=== PATIENT | male | born 2005 | race Caucasian/White ===

== ENCOUNTER 2025-01-09 09:36 | Emergency (ER) | payer OTHER, SELFPAY ==
[2025-01-09 09:37] VITALS: BP 132/91; PULSE 78; RESP 16; TEMP 37; O2SAT 100; BMI 22.4
[2025-01-09 09:43] VITALS: BP 132/91; PULSE 78; O2SAT 100
--- NOTE | 2025-01-09 09:56 | PC.NURSE ---
DR GARCIA AT BEDSIDE
--- NOTE | 2025-01-09 09:57 | ED_ITS ---
Discharge Plan Disposition Patient Disposition: Home, Self-Care Referrals Follow up/Referrals: Provider,Referral, [Primary Care Provider, Medical] - See instructions Activity Restrictions/Add. Instructions Additional Instructions/Restrictions: You were given a dose of steroids here for your poison jason. I encourage you to continue to use calamine lotion to help with your symptoms. You can take Benadryl as well to help with itchiness. If symptoms do not improve, follow-up with your primary care doctor. Will encourage you to wash all your close and sheets in hot water with soap. If you develop any new or worsening symptoms, such as shortness of breath, vomiting, diarrhea, worsening rash, or if you become concerned for your health for any reason, return to the emergency department for evaluation Clinical Impressions Clinical Impression: Contact dermatitis Instructions Patient Instructions: DI for Skin Abscess Print Language Print Language: Welsh Discharge ED Provider: To [facility] Adult HPI General Chief complaint: Skin/Abscess/Foreign Body Stated complaint: poison jason/oak on body, diff breathing Time Seen by Provider: 01/09/25 09:52 Mode of Arrival: Ambulatory Source of Information: Patient Description of Symptoms (Recalled from ER Triage Doc. by RN): Patient presents with poison jason x 1 week on legs, arms and back. Used OTC calamine lotion with no relief. History of Present Illness HPI narrative: Karlo Mcintosh is a 19y male with no significant past medical history who presents to the emergency department for complaints of a rash that he believes may be poison jason. Patient states that a week ago, he was hunting deer and may have gotten into poison jason or poison oak. He states that since then, he has had a rash on both of his hands spread to his face. He states overall the rash is improving and is mildly itchy at this point. He states that they are starting to improve. His mom convinced him to come to the emergency room. He does state that he felt somewhat short of breath last night but overall feels improvement today. He denies any chest pain, vomiting or abdominal pain. He is otherwise healthy. Related Data Allergies Allergy/AdvReac Type Severity Reaction Status Date / Time No Known Allergies Allergy Verified 01/09/25 10:00 [facility] Disclaimer: The information contained in this section may have been updated after the patient was seen, as this information can be updated by other users. Social History Smoking Status: Never smoker alcohol intake: never current occupational status: employed Travel in the last 8 weeks?: None ROS Obtained: Yes Systems reviewed as appropriate & no additional complaints except as documented Physical Exam General General appearance: alert and in no apparent distress Head Head exam: atraumatic Eye Eye exam: Present normal appearance ENT ENT exam: Present normal external ear exam Neck Neck exam: Present full ROM Chest Chest inspection: Present symmetric chest wall rise Respiratory Respiratory exam: Present normal lung sounds bilaterally; Absent respiratory distress, wheezes or stridor Cardiovascular Cardiovascular exam: Present regular rate and normal rhythm Abdominal Exam Abdominal exam: Present soft; Absent tenderness or guarding exam: Present deferred Extremities Exam Extremities exam: Present normal inspection Back Exam Back exam: Present normal inspection Neurological Exam Neurological exam: Present alert and oriented X3 Psychiatric Psychiatric exam: Present normal affect Skin Skin exam: Present warm, dry and rash (Linear papules with mild erythema to the bilateral upper extremities mostly on the dorsal hands and forearms extending to the proximal arms. A few spots on the face as well. excoriation soriano noted) Medical Decision Making Medical Records Screening: Per USPSTF and CDC recommendations, given the prevalence of disease in our region, it is our hospital?s policy to screen for HIV and viral Hepatitis for all patients aged 18 and over and those with ongoing risk factors. Royal Inquiry Pt receiving controlled substance: No Vital Signs: 01/09/25 09:37 01/09/25 09:43 01/09/25 10:08 Temperature 98.6 F 98.2 F Temperature Source Oral Pulse Rate 78 80 Pulse Rate [Right Radial] 78 Respiratory Rate 16 20 Blood Pressure 132/91 H 110/78 Blood Pressure [Right Arm] 132/91 H Blood Pressure Mean [Right Arm] 104 Blood Pressure Source [Right Arm] Automatic Cuff Blood Pressure Position [Right Arm] Sitting 02 Sat by Pulse Oximetry 100 100 Oxygen Delivery Method Room Air Room Air Orders (Tests/Meds): ED MEDICATIONS Discontinued Medications Generic Name Dose Route Start Last Admin Trade Name Freq PRN Reason Stop Dose Admin Dexamethasone 10 mg 01/09/25 10:01 01/09/25 10:04 Dexamethasone 4mg Tablet PO 01/09/25 10:02 10 mg ONCE ONE Administration Medical Decision Narrative: Karlo Mcintosh is a 19y male with no significant past medical history who presents to the emergency department for complaints of a rash that he believes may be poison jason. Patient states that a week ago, he was hunting deer and may have gotten into poison jason or poison oak. He states that since then, he has had a rash on both of his hands spread to his face. He states overall the rash is improving and is mildly itchy at this point. He states that they are starting to improve. His mom convinced him to come to the emergency room. He does state that he felt somewhat short of breath last night but overall feels improvement today. He denies any chest pain, vomiting or abdominal pain. He is otherwise healthy. On arrival, patient is hemodynamically stable, afebrile, breathing carefully on room air with oxygen saturation 100%. Physical exam, stated above, reveals an overall well appearing male in no distress. He has linear papules along his bilateral upper extremities and into his face consistent with contact dermatitis, likely poison jason or poison oak. Differential diagnosis includes, poison jason, poison oak, contact dermatitis, low concern for pulmonary embolism as patient is PERC negative. Patient's lungs are clear bilaterally. Offered chest x-ray to evaluate for possible pneumonia, however patient declines at this time. I do feel the patient's contact of otitis is likely improving but would benefit from a course of dexamethasone. Patient is in agreement with this plan. I have low concern for anaphylaxis at this time. Will give 10 mg of oral dexamethasone and encourage patient to wash his close. Return precautions were given. He was then discharged from the emergency department in stable condition Critical Care Critical Care Time Critical Care Time: No
[2025-01-09] MEDS: DEXAMETHASONE 4MG TABLET 10 MG PO (10:04)
[2025-01-09 10:08] VITALS: BP 110/78; PULSE 80; RESP 20; TEMP 36.8; O2SAT 98
--- NOTE | 2025-01-10 07:52 | PC.NURSE ---
pt called to check on extra dose of steroid. education provided to pt. given return precautions.
== END 2025-01-09 10:21 | disposition home or self-care (01) ==
LOC: ER 10:20
PROVIDERS: Emergency Provider Student in an Organized Health Care Education/Training Program
DX: L23.7 Allergic contact dermatitis due to plants, except food (principal)
CPT/HCPCS: 99282; 99283; J8540